=== PATIENT | female | born 1990 | race Hispanic/Latino ===

== ENCOUNTER 2024-10-31 21:03 | Inpatient (IN) | payer OTHER, SELFPAY ==
--- NOTE | 2024-10-31 21:47 | P.HPOB_ITS ---
OB HPI Date/Time Date of admission: 10/31/24 History of Present Condition Chief complaint: : 8 Para: 7 Narrative: This is a 34 yo who presents with SROM 30 minutes prior to arrival. She reports no care this . Last delivery January 22, 2024. Last with 12 lb requiring respiratory support. She reports hx of bleeding issues following delivery. care: none Ultrasounds: none Obstetrical complications: other (no care) Medical complications OB: none Preadmission Labs Last OB Lab Results: Blood Type Pending Today, 21:40 Antibody Screen Pending Today, 21:40 Hct, (36-46) 34.3 % L Today, 21:40 Hgb, (12.0-16.0) 11.4 g/dL L Today, 21:40 Prior (ies) Hx # Term Pregnancies: 7 Number of Living Children: 7 Evaluation Evaluation Baseline heart rate: 155 Variability: Moderate (6-25) monitor accelerations: Present Monitor Decelerations: Absent Uterine Contraction Intensity: Strong/Firm Category of Tracing: Reactive Status: Category l Dilation (cm): 8 Effacement (%): 80 Dilation: >/=5 cm Effacement: >/=80% station: 0 Position of cervix: mid Consistency: soft Velazquez score: 11 Comments: grossly ruptured Meds Home Medications and Allergies Home Medications ?Medication ?Instructions ?Recorded ?Confirmed ?Type No Known Home Medications 10/31/2410/20 History Allergies Allergy/AdvReac Type Severity Reaction Status Date / Time No Known Drug Allergies Allergy Verified 10/31/24 21:52 Review of Systems Review of Systems ROS: Yes All systems reviewed with the patient and are negative except as otherwise documented Assessment and Plan Assessment and Plan Assessment and Plan narrative: 34 yo here with SROM. No care. Likely 36-37 weeks based on prior delivery 01/22/2024. 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
[2024-10-31 21:53] LABS: Add Manual Diff / Slide Review NO; Hematocrit 34.3 % (36-46); Hemoglobin 11.4 g/dL (12.0-16.0); Lymphocytes Absolute Auto 2700 /uL (1100-4500); Mean Corpuscular HGB Conc 33.1 % (30-36); Mean Corpuscular Hemoglobin 26.3 PG (26-34); Mean Corpuscular Volume 79.5 fL (80-100); Platelet Count 311 X10^3/uL (150-400)
[2024-10-31] MEDS: AMPICILLIN 2,000 MG in SODIUM CHLORIDE 0.9% 100 ML 200 MG IV (22:06)
[2024-10-31] MEDS: OXYTOCIN PREMIX 30 UNIT/500 ML PLAST..BAG 200 UNIT IV (22:45)
[2024-10-31] MEDS: TRANEXAMIC ACID 1,000 MG in SODIUM CHLORIDE 0.9% 100 ML 600 MG IV (22:47)
--- NOTE | 2024-10-31 22:51 | PM.AN.REGBLK ---
Regional Block Pre-procedure Procedure: Continuous Lumbar Epidural for L&D (with dural puncture) Attending OB provider: Edilia Portillo PMH/ROS narrative: 34yo female arrived in labor, ruptured at 8 cm, requested epidural urgently so abbreviated exam. GDM ASA Class: III Labs: Hct 34.3 % (36-46) L 10/31/24 21:40 Plt Count 311 X10^3/uL (150-400) 10/31/24 21:40 Medications: Current Medications Generic Name Dose Route Start Last Admin Trade Name Freq PRN Reason Stop Dose Admin Calcium Carbonate 1,000 mg 10/31/24 21:44 Calcium Carbonate 500 Mg Tab PO Q2HR PRN Dyspepsia Carboprost Tromethamine 250 mcg 10/31/24 21:44 Carboprost 250 Mcg/Ml Ampul IM Q90M PRN Bleeding Oxytocin/Lactated Ringer's 30 unit in 500 mls @ 200 mls/hr 10/31/24 21:44 Oxytocin Premix IV CONT PRN Bleeding Protocol Tranexamic Acid 1,000 mg/ 100 mls @ 600 mls/hr 10/31/24 21:44 Sodium Chloride IV NOW PRN Bleeding Lactated Ringer's 1,000 mls @ 100 mls/hr 10/31/24 21:45 Lactated Ringers IV 11/01/24 07:44 CONT TONY Lidocaine HCl 20 ml 10/31/24 21:44 Lidocaine 1% 20 Ml INJ INTRA-OP PRN Post Delivery Methylergonovine Maleate 0.2 mg 10/31/24 21:44 Methylergonovine 0.2 Mg Tablet PO Q6HR PRN Heavy Bleeding Methylergonovine Maleate 0.2 mg 10/31/24 21:44 Methylergonovine 0.2 Mg/Ml Vial IM NOW PRN Bleeding Mineral Oil 30 ml 10/31/24 21:44 Mineral Oil 30 Ml Udc TOP PRN PRN Version Misoprostol 800 mcg 10/31/24 21:44 Misoprostol 200 Mcg Tablet WA NOW PRN Bleeding Misoprostol 400 mcg 10/31/24 21:44 Misoprostol 200 Mcg Tablet SL NOW PRN Bleeding Naloxone HCl 0.2 mg 10/31/24 21:44 Naloxone 0.4 Mg/Ml Vial IV Q2MIN PRN Opiate Reversal Ondansetron HCl 4 mg 10/31/24 21:44 Ondansetron 4 Mg/2 Ml Inj IV Q4HR PRN Nausea And Vomiting Oxytocin 10 unit 10/31/24 21:44 Oxytocin 10 Unit/Ml Vial IM NOW PRN Bleeding Allergies: Allergies Allergy/AdvReac Type Severity Reaction Status Date / Time No Known Drug Allergies Allergy Verified 10/31/24 21:52 Procedure Insertion date: 10/31/24 Insertion time: 22:36 Prep/Local: 1% lidocaine (Chloraprep) Interspace: L3-4 Patient position: sitting Needle: 18 gauge Hustead (27g pencil point for dural puncture) Loss of resistance with: saline GAYLA at (cm): 8 Catheter placed at SKIN (cm): 14 Catheter in SPACE (cm): 6 Insertion: Yes Paresthesia with insertion Initial Medications TEST DOSE time: 22:37 TEST DOSE: 1.5% lidocaine with epinephrine 1:200k (mL): 3 BOLUS DOSE time: 22:38 BOLUS DOSE (mL): 2 BOLUS DOSE med: other (same as test dose) Infusion Subsequent interventions: No infusion due to speedy progression to delivery Post-procedure Anesthesia date START: 10/31/24 Anesthesia time START: 22:24 Anesthesia date END: 10/31/24 Anesthesia time END: 22:44 Post-procedure Anesthesia Assessment: Yes CV function: HR/BP stable, Yes Resp function: RR/sat/airway adequate, Yes Post-op hydration adequate, Yes Pain control adequate, Yes Nausea & vomiting absent, Yes Temperature > 36 C, Yes Mental status appropriate and No Anesthesia complications
--- NOTE | 2024-10-31 22:56 | PM.OBPRVD ---
Events: No Care Labor & Delivery Delivery date: 10/31/24 Delivery Time: 22:44 Intrapartal Events: Precipitous Labor < 3 hours Cervical ripening method: none Induction method: none Delivery monitor: external FHT Route of delivery: L&D Laceration Description: None Estimated blood loss (mL): 500 Anesthesia Type: Epidural Narrative: The patient progressed to C/C/+2 without augmentation and epidural anesthesia. After approximately 1 sets of maternal pushing efforts, the delivered in OA position and restituted SHAMIR. The anterior shoulder delivered with gentle downward pressure. The posterior shoulder and rest of body delivered with ease. The cord was doubly clamped and cut after a 2 minute. The placenta delivered spontaneously and was intact with a 3-vessel cord. The fundus was noted to be firm with bimanual massage and pitocin. Inspection of the cervix, vagina, and perineum showed no lacerations. Rectal misoprostol (1000mcg) was placed for grand multiparity. The patient tolerated delivery well and remained in the labor room with the infant at the bedside. Plan for aftercare: Routine care
[2024-10-31] MEDS: DERMOPLAST SPRAY 20% 60 ML 1 SPRAY TOP (23:34)
[2024-10-31] MEDS: LANOLIN OINT 7 GM 1 APPLIC TOP (23:34)
[2024-10-31] MEDS: ACETAMINOPHEN 325 MG TABLET 650 MG PO (23:35)
[2024-10-31] MEDS: IBUPROFEN 600 MG TABLET PO (23:35)
[2024-11-01 06:23] LABS: UR Morphine/Opiate cutoff 300 Negative (Negative); Urine MDMA Negative (Negative); Urine Methamphetamines Negative (Negative); Urine Tetrahydrocannabinol Negative (Negative); Urine Tricyclic Antidepressant Negative (Negative)
[2024-11-01] MEDS: ACETAMINOPHEN 325 MG TABLET 650 MG PO ×2 (06:45→13:50)
[2024-11-01] MEDS: IBUPROFEN 600 MG TABLET PO ×2 (06:45→13:49)
[2024-11-01 07:51] LABS: Hepatitis B Surface Antigen NEGATIVE s/c (NEGATIVE)
[2024-11-01] MEDS: OXYCODONE IR 5 MG TABLET PO (08:23)
[2024-11-01] MEDS: DOCUSATE 100 MG CAPSULE PO (08:23)
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
[2024-11-01] MEDS: LIDOCAINE 2% INJ MDV 20ML 20 ML INJ (09:08)
[2024-11-01 16:42] LABS: Add Manual Diff / Slide Review NO; Hematocrit 28.6 % (36-46); Hemoglobin 9.4 g/dL (12.0-16.0); Lymphocytes Absolute Auto 2700 /uL (1100-4500); Mean Corpuscular HGB Conc 32.9 % (30-36); Mean Corpuscular Hemoglobin 26.2 PG (26-34); Mean Corpuscular Volume 79.5 fL (80-100); Platelet Count 258 X10^3/uL (150-400)
[2024-11-01] MEDS: MEASLES,MUMPS,RUBELLA VACC/PF 0.5 ML VIAL SUBCUT (19:20)
== END 2024-11-01 20:10 | disposition home or self-care (01) | DRG 560 ==
PROVIDERS: Admitting Provider Student in an Organized Health Care Education/Training Program; Referring Provider Student in an Organized Health Care Education/Training Program; Visit Provider Student in an Organized Health Care Education/Training Program
DX: O42.02 Full-term premature rupture of membranes, onset of labor within 24 hours of rupture (principal); O62.3 Precipitate labor; Z37.0 Single live birth; O09.33 Supervision of pregnancy with insufficient antenatal care, third trimester
CPT/HCPCS: 36415; 59050; 76815; 80055; 80305; 85025; 86850; 86900; 86901; G0378; G0379; J0290; J2590; S0191